=== PATIENT | female | born 1975 | race Caucasian/White ===

== ENCOUNTER → 2020-09-16 16:29 | Outpatient (CLI) | payer OTHER, SELFPAY ==
--- NOTE | ~2020-09-16 | MM_ITS ---
EXAMINATION: MM screening [facility] BI w [facility] HISTORY: Screening mammogram TECHNIQUE: Craniocaudal and mediolateral oblique 3-D tomosynthesis images were obtained and synthetic 2-D images were generated. CAD analysis was submitted and interpreted. COMPARISON: 01/16/2019, 01/10/2018, 05/25/2016 bilateral digital screening mammogram examinations BREAST PARENCHYMAL COMPOSITION: There are scattered areas of fibroglandular density. FINDINGS: There are scattered benign calcifications. There is no evidence of suspicious mass, calcifi cation, or architectural distortion to suggest malignancy in either breast. There has been no suspici ous interval change. IMPRESSION: 1. No mammographic evidence of malignancy. 2. Recommend routine screening mammography in one year. BI-RADS Category 2: Benign finding(s). Reviewed, dictated and finalized at location A. 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
--- NOTE | ~2020-09-16 | XR_ITS ---
XR hip LT 2V w AP pelvis DATE: 09/16/2020 17:07 INDICATION: Left hip pain TECHNIQUE: AP pelvis. AP and lateral views of left hip COMPARISON: None FINDINGS: The pubic symphysis and sacroiliac joints are intact. No pelvic fracture or bone destruction is detected. There is bilateral hip osteoarthritic arthritis including spurring of both femoral heads, left greate r than right. No fracture or dislocation, avascular necrosis or bone destruction of the left hip is evident. IMPRESSION: Bilateral hip osteoarthritis, left greater than right Reviewed, dictated and finalized at location B. UP PERSON
== END ==
PROVIDERS: PCP Family Medicine; Visit Provider Family Medicine
DX: Z12.31 Encounter for screening mammogram for malignant neoplasm of breast (principal); M16.0 Bilateral primary osteoarthritis of hip
CPT/HCPCS: 73502; 77063; 77067

== ENCOUNTER → 2021-10-13 07:33 | Outpatient (CLI) | payer OTHER, SELFPAY ==
[2021-10-13 14:18] LABS: SARS-CoV-2 RNA PCR Negative
[2021-10-13 14:51] LABS: Influenza A QL RT-PCR Negative (Negative); Influenza B QL RT-PCR Negative (Negative)
== END ==
PROVIDERS: PCP Family Medicine; Visit Provider Family Medicine
DX: R05.9 Cough, unspecified (principal); Z20.822 Contact with and (suspected) exposure to COVID-19
CPT/HCPCS: 87502; 87804; C9803; U0003; U0005

== ENCOUNTER 2022-03-13 00:10 | Day surgery (SDC) | payer OTHER, SELFPAY ==
[2022-02-27 11:05] VITALS: BMI 34.8
--- NOTE | 2022-03-13 07:48 | P.PNAN_ITS ---
Anes - Initial Pre Proc Eval Procedure: Operation Date: 03/13/22 10:15 Proposed Procedures p Screening Colonoscopy - Jeffery Quintero MD Date/Time: 03/13/22 07:48 Surgeon: Jeffery Quintero MD Pre Op Diagnosis: neoplasm screening Patient Data Age: 46 Gender: F Height: 1.75 m Weight: 107 kg Allergies Allergy/AdvReac Type Severity Reaction Status Date / Time cat dander Allergy Unknown Unknown Verified 03/13/22 09:01 Home Medications Medication Instructions Recorded Confirmed Type empagliflozin 10 mg tablet 10 mg PO DAILY #90 tabs 04/12/21 02/27/22 Rx (Jardiance) lisinopril 10 mg tablet 10 mg PO DAILY #90 tabs 04/12/21 02/27/22 Rx metformin 500 mg tablet 1,000 mg PO BID #360 tabs 04/12/21 02/27/22 Rx metoprolol succinate 25 mg 25 mg PO DAILY #90 tabs 04/12/21 02/27/22 Rx tablet,extended release 24 hr semaglutide 0.25 mg or 0.5 mg (2 0.5 mg (0.4 mL) subcut WEEKLY #4.5 04/12/21 02/27/22 Rx mg/1.5 mL) subcutaneous pen mL injector (WikiBrains) blood sugar diagnostic (OneTouch #100 ea 08/28/21 12/25/21 Rx Verio test strips) albuterol sulfate 90 mcg/actuation 1 inh inhalation Q4H PRN shortness 10/10/21 02/27/22 Rx aerosol inhaler of breath or wheezing #8.5 grams colesevelam 625 mg tablet (WelChol) 1,250 mg PO TID 02/27/22 02/27/22 History Patient hx anesthesia problems: none Family hx anesthesia problems: none Results Review: All pre-operative results and documents have been reviewed as part of the pre- operative evaluation. [facility] Past Medical History Medical History (Updated 03/13/22 @ 09:54 by Esteban Sam DO) Asthma DM w/o complication type II, uncontrolled Essential (primary) hypertension Fatty (change of) liver, not elsewhere classified Hyperlipidemia, unspecified Family History Family History Father Hypertension Family history of diabetes mellitus in first degree relative Family history of obesity Social History Social History Smoking status: Never smoker Tobacco type: cigarettes Second hand tobacco smoke exposure: No Alcohol intake: never Substance use: never Substance use type: does not use Living arrangements: with family Gender identity (if verbalized by the patient): Female Spiritual care concerns: No Anes - Eval Final PreProcedure Day of Procedure 03/13/22 07:48 Patient weight: obese Heart: regular rate and rhythm Lungs: clear to auscultation Airway: Mallampati scale class II Neurological: alert and oriented Last oral intake: >/= 8 hours ASA classification: III Emergent: no Anesthetic plan: proceed Anesthesia type and monitoring: general GIVS and standard monitoring Results Review: All pre-operative results and documents have been reviewed as part of the pre- operative evaluation. Informed Consent: The patient's anesthetic plan and its attendant risks and benefits were discussed with the patient/family/POA. Questions were solicited and answers provided to the satisfaction of the patient/family/POA.
[2022-03-13 09:05] VITALS: BP 115/79; PULSE 82; RESP 17; TEMP 36.5; O2SAT 99
[2022-03-13] MEDS: LACTATED RINGERS 1,000 ML 150 ML IV CONT (09:23)
[2022-03-13 09:24] LABS: Glucose Point of Care 141 mg/dl (65-105)
--- NOTE | 2022-03-13 09:39 | WPDGICN ---
Assessment and Plan Assessment and plan (1) Encounter for screening colonoscopy: Code(s): Z12.11 - Encounter for screening for malignant neoplasm of colon Status: Acute Assessment and Plan: Patient presents for screening colonoscopy. Further recommendations will be given after endoscopy. GI Consult Note Consult date/time: 03/13/22 09:39 Reason for consult: Neoplasia screening. HPI: Torie Durham is a 46 year old female Presents for screening colonoscopy. Patient's current weight appetite bowel movements are normal. Patient denies abdominal pain. Patient presents today for neoplasia screening. Family history is significant father may have had colon polyps. Patient desires neoplasia screening Review of Systems Review of Systems: review of systems noncontributory. PMFSH Family History Family History Father Hypertension Family history of diabetes mellitus in first degree relative Family history of obesity Social History Social History Smoking status: Never smoker Tobacco type: cigarettes Second hand tobacco smoke exposure: No Alcohol intake: never Substance use: never Substance use type: does not use Living arrangements: with family Gender identity (if verbalized by the patient): Female Spiritual care concerns: No Meds Home Medications and Allergies Home Medications Medication Instructions Recorded Confirmed Type empagliflozin 10 mg tablet 10 mg PO DAILY #90 tabs 04/12/21 02/27/22 Rx (Jardiance) lisinopril 10 mg tablet 10 mg PO DAILY #90 tabs 04/12/21 02/27/22 Rx metformin 500 mg tablet 1,000 mg PO BID #360 tabs 04/12/21 02/27/22 Rx metoprolol succinate 25 mg 25 mg PO DAILY #90 tabs 04/12/21 02/27/22 Rx tablet,extended release 24 hr semaglutide 0.25 mg or 0.5 mg (2 0.5 mg (0.4 mL) subcut WEEKLY #4.5 04/12/21 02/27/22 Rx mg/1.5 mL) subcutaneous pen mL injector (Ozempic) blood sugar diagnostic (TriblioTouch #100 ea 08/28/21 12/25/21 Rx Verio test strips) albuterol sulfate 90 mcg/actuation 1 inh inhalation Q4H PRN shortness 10/10/21 02/27/22 Rx aerosol inhaler of breath or wheezing #8.5 grams colesevelam 625 mg tablet (WelChol) 1,250 mg PO TID 02/27/22 02/27/22 History Allergies Allergy/AdvReac Type Severity Reaction Status Date / Time cat dander Allergy Unknown Unknown Verified 03/13/22 09:01 Vital Signs Vital Signs - 24 hr 03/13/22 09:05 Temperature 97.7 F Pulse Rate 82 Respiratory Rate 17 Blood Pressure 115/79 Pulse Oximetry 99 Oxygen Delivery Room Air Exam Narrative: Physical exam reveals patient to be alert. Vital signs stable. HEENT exam is unremarkable. Patient is anicteric. Lungs are clear to auscultation and percussion. Heart is without murmur or extra sounds. Abdominal exam bowel sounds present soft nontender with no organomegaly. Digital external rectal exam is normal.
[2022-03-13 10:49] VITALS: BP 93/72; PULSE 72; RESP 15; O2SAT 99
[2022-03-13 10:59] VITALS: BP 100/61; PULSE 69; RESP 19; O2SAT 100
[2022-03-13 11:09] VITALS: BP 122/73; PULSE 73; RESP 16; O2SAT 100
== END 2022-03-13 11:21 | disposition home or self-care (01) ==
PROVIDERS: PCP Family Medicine; Visit Provider Internal Medicine Gastroenterology
PROC: 0DJD8ZZ Inspection of Lower Intestinal Tract, Via Natural or Artificial Opening Endoscopic (ICD-10-PCS; CPT 45378; principal; 2022-03-13 10:15)
DX: Z12.11 Encounter for screening for malignant neoplasm of colon (principal); K62.1 Rectal polyp; K64.8 Other hemorrhoids; Z83.71 Family history of colonic polyps; J45.909 Unspecified asthma, uncomplicated; E11.9 Type 2 diabetes mellitus without complications; I10 Essential (primary) hypertension; E78.5 Hyperlipidemia, unspecified; K76.0 Fatty (change of) liver, not elsewhere classified; Z79.84 Long term (current) use of oral hypoglycemic drugs; Z79.899 Other long term (current) drug therapy; Z79.51 Long term (current) use of inhaled steroids; E66.9 Obesity, unspecified; Z68.34 Body mass index [BMI] 34.0-34.9, adult
CPT/HCPCS: 45385; 82948; 88305; J2001; J2704; J7120

== ENCOUNTER → 2022-04-12 16:15 | Outpatient (CLI) | payer OTHER, SELFPAY ==
--- NOTE | ~2022-04-12 | MM_ITS ---
EXAMINATION: MM screening [facility] BI w gloria HISTORY: Screening mammogram TECHNIQUE: Craniocaudal and mediolateral oblique 3-D tomosynthesis images were obtained and synthetic 2-D images were generated. CAD analysis was submitted and interpreted. COMPARISON: 09/16/2020, 01/16/2019 BREAST PARENCHYMAL COMPOSITION: There are scattered areas of fibroglandular density. FINDINGS: There is no suspicious mass, calcification, or architectural distortion to suggest malignan cy in either breast. There has been no suspicious interval change. IMPRESSION: 1. No mammographic evidence of malignancy. 2. Recommend routine screening mammography in one year. BI-RADS Category 1: Negative Reviewed, dictated and finalized at location A.
== END ==
PROVIDERS: PCP Family Medicine; Visit Provider Nurse Practitioner Obstetrics & Gynecology
DX: Z12.31 Encounter for screening mammogram for malignant neoplasm of breast (principal)
CPT/HCPCS: 77063; 77067

== ENCOUNTER → 2023-09-20 12:11 | Outpatient (CLI) | payer OTHER, SELFPAY ==
--- NOTE | ~2023-09-20 | MM_ITS ---
EXAMINATION: MM screening [facility] BI w [facility] HISTORY: Screening TECHNIQUE: Craniocaudal and mediolateral oblique 3-D tomosynthesis images were obtained and synthetic 2-D images were generated. CAD analysis was submitted and interpreted. COMPARISON: Comparison to multiple prior studies sequentially, with oldest reviewed study dated 05/25. BREAST PARENCHYMAL COMPOSITION: There are scattered areas of fibroglandular density. FINDINGS: There is no evidence of suspicious mass, calcification, or architectural distortion to sugg est malignancy in either breast. There has been no suspicious interval change. IMPRESSION: 1. No mammographic evidence of malignancy. 2. Recommend routine screening mammography in one year. BI-RADS Category 1: Negative Reviewed, dictated and finalized at location A. 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
== END ==
PROVIDERS: PCP Family Medicine; Visit Provider Nurse Practitioner Obstetrics & Gynecology
DX: Z12.31 Encounter for screening mammogram for malignant neoplasm of breast (principal)
CPT/HCPCS: 77063; 77067